=== PATIENT | female | born 1985 | race Two or more races ===

== ENCOUNTER 2017-04-27 06:33 | Day surgery (SDC) | payer OTHER ==
[2017-04-24 14:23] VITALS: BMI 22.6
[2017-04-27] MEDS ORDERED: BUPIVACAINE HCL/PF 2.5 MG/ML - 30 ML VIAL IJ ONE (07:22)
[2017-04-27] MEDS ORDERED: EPINEPHrine 1:1,000 1 MG/1 ML - 30ML VIAL (INJECTION) ONE (07:22)
[2017-04-27] MEDS ORDERED: ceFAZolin SODIUM 1 GM VIAL ONE (07:33)
[2017-04-27] MEDS ORDERED: KETOROLAC TROMETHAMINE 30 MG/1 ML VIAL ONE (07:33)
[2017-04-27] MEDS ORDERED: DEXAMETHASONE SOD PHOSPHATE 4 MG/1 ML VIAL ONE (07:33)
[2017-04-27] MEDS ORDERED: ONDANSETRON 4 MG/2 ML VIAL ONE (07:33)
[2017-04-27] MEDS ORDERED: MIDAZOLAM HCL 2 MG/2 ML SINGLE DOSE VIAL ONE (07:35)
[2017-04-27] MEDS ORDERED: PROPOFOL 20 ML ONE ×2 (07:35)
[2017-04-27] MEDS ORDERED: BUPIVACAINE HCL/PF 0.25% (2.5MG/ML) 10 ML VIAL IJ ONE (08:05)
[2017-04-27] MEDS ORDERED: oxyCODONE HCL 5 MG TABLET PO PRN (08:22)
[2017-04-27] MEDS ORDERED: PROMETHAZINE HCL 25 MG/1 ML VIAL IVPUSH PRN (08:22)
[2017-04-27] MEDS ORDERED: ONDANSETRON 4 MG/2 ML VIAL IVPUSH PRN (08:22)
[2017-04-27] MEDS ORDERED: LACTATED RINGERS SOLUTION 1,000 ML IV SCH (08:30)
[2017-04-27] MEDS: oxyCODONE HCL 5 MG TABLET PO PRN ×2 (09:16→09:58)
[2017-04-27 09:50] VITALS: TEMP 97.8
[2017-04-27] MEDS ORDERED: oxyCODONE HCL 5 MG TABLET ONE (09:57)
[2017-04-27 10:47] VITALS: BP 125/68; PULSE 92
--- NOTE | 2017-04-30 21:15 | OP ---
DATE OF SURGERY: 04/27/2017 PREOPERATIVE DIAGNOSIS: 1. Left knee medial and lateral meniscal tear. 2. Left knee cartilage injury. 3. Left knee synovitis. 4. Left knee patellofemoral cartilage injury. POSTOPERATIVE DIAGNOSIS: 1. Left knee medial and lateral meniscal tear. 2. Left knee cartilage injury. 3. Left knee synovitis. 4. Left knee patellofemoral cartilage injury. PROCEDURE: 1. Left knee arthroscopy with partial meniscectomy, medial and lateral meniscus. 2. Left knee arthroscopy with chondroplasty and abrasion-plasty. 3. Left knee arthroscopy with synovectomy including removal of the medial plica. 4. Left knee arthroscopy with arthroscopic lateral release. SURGEON: Augustine Ortiz MD PIGMENT GRINDER: BEN Campos FINDINGS: 1. Medial meniscus posterior horn tear/minor. 2. Lateral meniscus posterior horn tear/minor. 3. Synovitis . 4. Grade 1-2 cartilage injury medial tibial plateau. 5. ACL and PCL intact. 6. . 7. Medial grade 4 changes to the patella and patellofemoral trochlea with severe tilting and tight lateral retinaculum, patellofemoral joint. PROCEDURE: Informed consent was obtained. The patient was taken to the operating room where the left lower extremity was prepped and draped in a sterile fashion. A tourniquet was placed on the left upper thigh but not inflated. Using standard arthroscopic technique, a lateral incision and portal were made which allowed for introduction of the camera into the suprapatellar bursa. This was then taken to the medial joint line where under direct visualization, a medial incision and portal were made. Excessive synovium noted in the medial, lateral, patellofemoral and notch area was removed by the up-biting shaver and Bovie cautery. This was found to bring inflammatory tissue into the joint surface, a source of joint pain and dysfunction. Probing of the medial and lateral meniscus found tears described in the findings. These were removed with an up-biting shaver and taken back to a stable rim. Grade 2-3 degenerative changes were treated with chondroplasty, removing all flaking surfaces with low setting Bovie used along the periphery. Grade 4 changes were treated with abrasion-plasty. All areas of the knee were once again re-examined. The knee was then drained. A single suture was placed on all portals. Sterile dressing was placed. The patient was transferred to the recovery room. ADDENDUM: The patient had severe contraction of the lateral joint line with lateral subluxation of the patellofemoral joint and tilting. A lateral release was performed using Bovie cautery starting at the superior portion of the patella along the retinaculum, releasing it to 1 cm below the inferior pole. This allowed for centralization of the patella along the patellofemoral joint. AUGUSTINE ORTIZ M.D. [id number]
== END 2017-04-27 10:45 | disposition home or self-care (01) ==
LOC: FASU 06:33
PROVIDERS: ATTEND Orthopaedic Surgery
PROC: 0SBD4ZZ Excision of Left Knee Joint, Percutaneous Endoscopic Approach (ICD-10-PCS; 2017-04-27)
PROC: 0SBD4ZZ Excision of Left Knee Joint, Percutaneous Endoscopic Approach (ICD-10-PCS; 2017-04-27)
PROC: 0MNP4ZZ Release Left Knee Bursa and Ligament, Percutaneous Endoscopic Approach (ICD-10-PCS; 2017-04-27)
PROC: 0SBD4ZZ Excision of Left Knee Joint, Percutaneous Endoscopic Approach (ICD-10-PCS; principal; 2017-04-27 07:59)
DX: S83.242A Other tear of medial meniscus, current injury, left knee, initial encounter (principal); S83.282A Other tear of lateral meniscus, current injury, left knee, initial encounter; S83.8X2A Sprain of other specified parts of left knee, initial encounter; M65.862 Other synovitis and tenosynovitis, left lower leg; M22.2X2 Patellofemoral disorders, left knee; X58.XXXA Exposure to other specified factors, initial encounter; Y93.9 Activity, unspecified; Y92.9 Unspecified place or not applicable
CPT/HCPCS: 84703; 94760

== ENCOUNTER 2017-10-17 11:46 | Emergency (ER) | payer OTHER ==
[2017-10-17] MEDS ORDERED: ONDANSETRON 4 MG/2 ML VIAL ONE (11:54)
[2017-10-17] MEDS ORDERED: IPRATROPIUM BR 0.02% 0.5 MG/2.5 ML VIAL.NEB. NEB ONE (11:54)
[2017-10-17 12:06] VITALS: BMI 24.5
[2017-10-17] MEDS ORDERED: predniSONE 20 MG TABLET (UD) PO ONE (12:47)
--- NOTE | 2017-10-17 12:47 | PDOC ---
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 The patient first noted the hives on her arms 2 weeks ago which have recently spread to her face. The patient visited an Urgent Care and was prescribed 20mg prednisone and antibiotics. She reports taking the prednisone for 3-4 days and stopping the course, but she reports taking another dose last night. The patient has been taking 25mg of benadryl in the morning and afternoon and 50mg at night, which has been alleviating her symptoms. Her symptoms are associated with facial swelling and a "tickle" in her throat. The patient has never experienced these symptoms in the past. When she began to experience R eyelid swelling this morning, her was brought to the ED via EMS and given atrovent, zofran, and 50mg IV benadryl. She also reports she had a few mins of chest tightness that resolved en route with the atrovent. She denies any recent changes to her diet or the use of new detergents or soaps. Pt reports significant improvement in her sxs since the meds given by EMS. The patient denies any fever, chills, nausea, vomiting, diarrhea, or abdominal pain. She denies any chest pain or palpitations. Allergies: albuterol, naproxen Surgical History: Knee surgery (04/27/17) Past History - Past Medical History Allergies/Adverse Reactions: Allergies Allergy/AdvReac Type Severity Reaction Status Date / Time albuterol Allergy bronchospas Verified 10/17/17 12:05 m naproxen [From Naprosyn] Allergy Rash Verified 10/17/17 12:05 Home Medications: Ambulatory Orders Valacyclovir HCl [Valtrex] 1,000 mg PO DAILY 04/24/17 Epinephrine [Epipen 2-Allen] 0.3 mg IJ ASDIR #1 kit 10/17/17 Ipratropium 0.02% Nebulizer [Atrovent *Nebulizer*] 0.5 mg IH PRN 10/17/17 Meloxicam 15 mg PO PRN 10/17/17 Prednisone [Prednisone 50 MG TABLETS] 50 mg PO DAILY #4 tablet 10/17/17 Anemia: No Asthma: Yes Cancer: No Cardiac Disorders: No CVA: No COPD: No CHF: No Dementia: No Diabetes: No GI Disorders: Yes (IBS) Disorders: No HTN: No Hypercholesterolemia: No Liver Disease: No Seizures: No Thyroid Disease: No Other medical history: Herpes - Surgical History Abdominal Surgery: No Appendectomy: No Cardiac Surgery: No Cholecystectomy: No Lung Surgery: No Neurologic Surgery: No Orthopedic Surgery: No - Suicide/Smoking/Psychosocial Hx Smoking History: Current every day smoker Number of Cigarettes Smoked Daily: 2 Information on smoking cessation initiated: No Hx Alcohol Use: No Drug/Substance Use Hx: No Substance Use Type: Alcohol Review of Systems - Review of Systems Comments:: 10/17/17 13:37 GENERAL/CONSTITUTIONAL: No fever or chills. No weakness. HEAD, EYES, EARS, NOSE AND THROAT: No change in vision. No ear pain or discharge. +tickle in throat GASTROINTESTINAL: No nausea, vomiting, diarrhea or constipation. GENITOURINARY: No dysuria, frequency, or change in urination. CARDIOVASCULAR: No chest pain or shortness of breath. +chest tightness RESPIRATORY: No cough, wheezing, or hemoptysis. MUSCULOSKELETAL: No joint or muscle swelling or pain. No neck or back pain. SKIN: No rash NEUROLOGIC: No headache, vertigo, loss of consciousness, or change in strength/ sensation. ENDOCRINE: No increased thirst. No abnormal weight change. HEMATOLOGIC/LYMPHATIC: No anemia, easy bleeding, or history of blood clots. ALLERGIC/IMMUNOLOGIC: +hives. +eyelid swelling *Physical Exam - Vital Signs Last Vital Signs Temp Pulse Resp BP Pulse Ox 98.5 F 88 18 116/62 100 10/17/17 11:58 10/17/17 11:58 10/17/17 11:58 10/17/17 11:58 10/17/17 11:58 - Physical Exam Comments: 10/17/17 13:39 GENERAL: Awake, alert, and fully oriented, in no acute distress HEAD: No signs of trauma EYES: PERRLA, EOMI, sclera anicteric, conjunctiva clear ENT: Auricles normal inspection, hearing grossly normal, nares patent, oropharynx clear without exudates. Moist mucosa NECK: Normal ROM, supple, no lymphadenopathy, JVD, or masses LUNGS: Breath sounds equal, clear to auscultation bilaterally. No wheezes, and no crackles HEART: Regular rate and rhythm, normal S1 and S2, no murmurs, rubs or gallops ABDOMEN: Soft, nontender, normoactive bowel sounds. No guarding, no rebound. No masses EXTREMITIES: Normal range of motion, no edema. No clubbing or cyanosis. No cords, erythema, or tenderness NEUROLOGICAL: Normal speech, cranial nerves intact, negative pronator drift, 5/ 5 strength in all 4 extremities, normal sensation to light touch in all 4 extremities, normal cerebellar exam, normal gait, normal reflexes and tone SKIN: +hives to R face, and b/l proximal UE. Medical Decision Making - Medical Decision Making 10/17/17 12:47 32yo F hx asthma, HSV, hay fever presents to the ED with 1 week of hives, eyelid swelling, throat scratching and chest tightness for a few mins, now resolved. Vitals wnl. Exam with urticaria to R side of the face and b/l proximal arms. Pt with no evidence of other systemic allergic sxs. No wheezing, vomiting, throat closing, sob. Will give pt course of prednisone 50mg, and epi pen. Pt has been taking benadryl, encouraged her to continue taking for 2-3 days. *DC/Admit/Observation/Transfer Diagnosis at time of Disposition: Allergic reaction - Discharge Dispostion Disposition: HOME Condition at time of disposition: Stable Decision to Admit order: No - Prescriptions Prescriptions: Epinephrine [Epipen 2-Allen] 0.3 mg IJ ASDIR #1 kit Prednisone [Prednisone 50 MG TABLETS] 50 mg PO DAILY #4 tablet - Referrals Referrals: Tenzin Cherry MD [Staff Physician] - - Patient Instructions Printed Discharge Instructions: DI for General Allergic Reactions Additional Instructions: Follow up with an allergy doctor within 1 week, a referral has been provided for Dr. Cherry. Take the benadryl around the clock for 2-3 days, but be careful as this medication can make you drowsy or dizzy. Keep an epi pen with you at all times. Take the prednisone daily for 4 days starting tomorrow 10/18/17. Return to the emergency department if you have any new, worsening, or concerning symptoms. - Post Discharge Activity - Attestations Physician Attestion: 10/17/17 12:57 I, Dr. Nic Haynes MD, attest that this document has been prepared under my direction and personally reviewed by me in its entirety. I further attest, that it accurately reflects all work, treatment, procedures and medical decision -making performed by me.
[2017-10-17] MEDS ORDERED: predniSONE 20 MG TABLET (UD) ONE (12:51)
[2017-10-17] MEDS ORDERED: predniSONE 10 MG TABLET (UD) ONE (12:52)
[2017-10-17 13:28] VITALS: BP 111/70; PULSE 80; TEMP 98
--- NOTE | 2017-10-18 15:35 | EKG ---
Test Reason : Blood Pressure : / mmHG Vent. Rate : 086 BPM Atrial Rate : 086 BPM P-R Int : 124 ms QRS Dur : 074 ms QT Int : 366 ms P-R-T Axes : 068 066 064 degrees QTc Int : 437 ms NORMAL SINUS RHYTHM NORMAL ECG NO PREVIOUS ECGS AVAILABLE Confirmed by ANNI DUBON MD ([id number]) on 10/18/2017 3:35:33 PM Referred By: Confirmed By:ANNI DUBON MD
== END 2017-10-17 13:59 | disposition home or self-care (01) ==
LOC: JER 11:46
DX: T78.40XA Allergy, unspecified, initial encounter (principal); X58.XXXA Exposure to other specified factors, initial encounter; J45.909 Unspecified asthma, uncomplicated; J30.1 Allergic rhinitis due to pollen; K58.9 Irritable bowel syndrome, unspecified
CPT/HCPCS: 93005; 93010; 99283-25